=== PATIENT | male | born 1960 | race Caucasian/White ===

== ENCOUNTER → 2016-12-21 17:20 | Outpatient (CLI) | payer BC ==
[2014-09-01 11:56] VITALS: BMI 25.1
[~2016-12-21 17:20] MED LIST: BYSTOLIC10 MG PO; CARDURA8 MG PO; COLACE100 MG PO; NORCO 10/325 TA1 TA1 PO
[2016-12-21 18:14] LABS: HEMOGLOBIN A1C 5.2 % (4.8-6.0)
[2016-12-21 18:18] LABS: CHOL - HDL RATIO 3.9 ratio (2.3-4.9); LDL-HDL RATIO 2.5 ratio (1.5-3.5)
== END | disposition home or self-care (01) ==
LOC: D.LABREF 17:20
PROVIDERS: Internal Medicine Interventional Cardiology
DX: Z00.00 Encounter for general adult medical examination without abnormal findings (principal)